=== PATIENT | male | born 1960 | race Caucasian/White ===

== ENCOUNTER 2017-02-05 17:42 | Emergency (ER) | payer BC ==
[~2017-02-05] VITALS: Ht 185.4 cm; Wt 108.9 kg
--- NOTE | 2017-02-05 17:54 | EKG ---
[address] [address] Test Date: 2017-02-05 Test Time: 17:49:16 Pat Name: JINNY FLORES Department: Room: Gender: M Distribution [employer]: : 1960 Requested By: YUMI HURTADO Order Number: [id number] Reading MD: Ortiz Kc Measurements Intervals [place] Rate: 98 P: 50 SC: 150 QRS: 14 QRSD: 88 T: 28 QT: 322 QTc: 413 Interpretive Statements SINUS RHYTHM Electronically Signed On 02-13-2017 8:48:10 CDT by Ortiz Kc
[2017-02-05 18:09] LABS: BASO # 0.1 x10^3/uL (0.0-0.2); BASO % 1 % (0-3); EOS # 0.3 x10^3/uL (0.0-0.7); EOS % 3 % (0-3); HEMOGLOBIN 14.6 g/dL (13.0-17.5); LYMPH # 1.5 x10^3/uL (1.0-4.8); LYMPH % 17 % (24-48); MEAN CORPUSCULAR HEMOGLOBIN 32 pg (25-35); MEAN CORPUSCULAR HGB CONC 34 g/dL (31-37); MEAN CORPUSCULAR VOLUME 95 fL (79-100); MONO # 0.7 x10^3/uL (0.0-1.1); MONO % 8 % (0-9); NEUT # 6.2 x10^3uL (1.8-7.7); NEUT % 71 % (31-73); PLATELET COUNT 170 x10^3/uL (140-400); RED BLOOD COUNT 4.54 x10^6/uL (4.30-5.70); RED CELL DISTRIBUTION WIDTH 13.8 % (11.5-14.5); WHITE BLOOD COUNT 8.7 x10^3/uL (4.0-11.0)
--- NOTE | 2017-02-05 18:12 | PHYS DOC ---
Past History Past Medical History: Hypertension Past Surgical History: Lumbar Laminectomy Smoking: Cigarettes, Greater than 1 pack/day Drug Use: None Adult General Chief Complaint Chief Complaint: CHEST PAIN HPI HPI He is a pleasant 56-year-old male with history of hypertension hyperglycemia soft reflux disease and a family history is significant for CAD vitamin D deficiency presents with chest pain. This chest pain has been ongoing for the last 3 weeks intermittently lasting anywhere from 10 minutes to an hour and a half. Says can occur while at rest also while with exertion. The pain does not radiate to the neck back shoulder or arm. He admits that the pain is better with rest it does make him very short of breath as well as lightheaded dizzy and nauseous. His last significant episode was today. Admittedly they're getting more severe and increasing in frequency. He was seen by his primary care doctor 3 days ago for similar presentation EKG was done at that time and was deemed unremarkable. It demonstrated right bundle branch block with T-wave inversions in V1 and V2. No troponin was completed. Patient admits this had no cough no URI symptoms no travel outside the country no right lower leg swelling or pain he denies any trauma Review of Systems Review of Systems Constitutional: Generalized weakness and dizziness with symptoms. Eyes: Denies change in visual acuity, redness, or eye pain [] HENT: Denies nasal congestion or sore throat [] Respiratory: Denies cough has shortness of breath with exertion Cardiovascular: No additional information not addressed in HPI [] GI: Denies abdominal pain, he does have some nausea and retching with symptoms no diarrhea no constipation : Denies dysuria or hematuria [] Musculoskeletal: Denies back pain or joint pain [] Integument: Denies rash or skin lesions does have some diaphoresis with symptoms. Neurologic: Denies headache, focal weakness or sensory changes she does get dizzy with symptoms Endocrine: Denies polyuria or polydipsia [] Family History Family History Negative family history and the brother and mother for significant heart disease. Allergies Allergies Allergies Coded Allergies Type Severity Reaction Last Updated Verified amoxicillin Allergy Severe 02/05/17 Yes clavulanic acid Allergy Severe 02/05/17 Yes loratadine Allergy Intermediate 02/05/17 Yes Physical Exam Physical Exam Constitutional: Well developed, well nourished, no acute distress, non-toxic appearance. [] HENT: Normocephalic, atraumatic, bilateral external ears normal, oropharynx moist, no oral exudates, nose normal. [] Eyes: PERRLA, EOMI, conjunctiva normal, no discharge. [] Neck: Normal range of motion, no tenderness, supple, no stridor. No JVD no bruits noted Cardiovascular:Heart rate regular rhythm, no murmur [] Lungs & Thorax: Bilateral breath sounds clear to auscultation no wheezes rhonchi rales or crackles Abdomen: Bowel sounds normal, soft, no tenderness, no masses, no pulsatile masses. [] Skin: Warm, dry, no erythema, no rash. Nondiaphoretic +2 Refill +2 peripheral pulses Back: No tenderness, no CVA tenderness. [] Extremities: No tenderness, no cyanosis, no clubbing, ROM intact, no edema. [] Neurologic: Alert and oriented X 3, normal motor function, normal sensory function, no focal deficits noted. [] Psychologic: Affect normal, judgement normal, mood normal. [] Current Patient Data Vital Signs Vital Sign - Last 24 Hours 02/05/17 02/05/17 02/05/17 02/05/17 17:43 18:19 18:22 18:28 Temp 98.8 Pulse 83 80 79 Resp 16 16 20 B/P (MAP) 162/97 162/97 (118) Pulse Ox 96 98 97 O2 Delivery Room Air Nasal Cannula O2 Flow Rate 2.0 Lab Results Nursery Laboratory Tests 02/05/17 17:45: White Blood Count 8.7, Red Blood Count 4.54, Hemoglobin 14.6, Hematocrit 43.0, Mean Corpuscular Volume 95, Mean Corpuscular Hemoglobin 32, Mean Corpuscular Hemoglobin Concent 34, Red Cell Distribution Width 13.8, Platelet Count 170, Neutrophils (%) (Auto) 71, Lymphocytes (%) (Auto) 17, Monocytes (%) (Auto) 8, Eosinophils (%) (Auto) 3, Basophils (%) (Auto) 1, Neutrophils # (Auto) 6.2, Lymphocytes # (Auto) 1.5, Monocytes # (Auto) 0.7, Eosinophils # (Auto) 0.3, Basophils # (Auto) 0.1, Sodium Level 142, Potassium Level 4.2, Chloride Level 106, Carbon Dioxide Level 30, Anion Gap 6, Blood Urea Nitrogen 14, Creatinine 1.2, Estimated GFR (Cockcroft-Gault) 62.9, Glucose Level 130, Calcium Level 8.7 Laboratory Tests Test 02/05/17 17:45 White Blood Count 8.7 x10^3/uL (4.0-11.0) Red Blood Count 4.54 x10^6/uL (4.30-5.70) Hemoglobin 14.6 g/dL (13.0-17.5) Hematocrit 43.0 % (39.0-53.0) Mean Corpuscular Volume 95 fL (79-100) Mean Corpuscular Hemoglobin 32 pg (25-35) Mean Corpuscular Hemoglobin Concent 34 g/dL (31-37) Red Cell Distribution Width 13.8 % (11.5-14.5) Platelet Count 170 x10^3/uL (140-400) Neutrophils (%) (Auto) 71 % (31-73) Lymphocytes (%) (Auto) 17 % (24-48) L Monocytes (%) (Auto) 8 % (0-9) Eosinophils (%) (Auto) 3 % (0-3) Basophils (%) (Auto) 1 % (0-3) Neutrophils # (Auto) 6.2 x10^3uL (1.8-7.7) Lymphocytes # (Auto) 1.5 x10^3/uL (1.0-4.8) Monocytes # (Auto) 0.7 x10^3/uL (0.0-1.1) Eosinophils # (Auto) 0.3 x10^3/uL (0.0-0.7) Basophils # (Auto) 0.1 x10^3/uL (0.0-0.2) EKG EKG EKG timed 5:49 PM 5 2006 temperature it's normal sinus rhythm with a heart rate of 98 patient demonstrates normal QRS with normal CT interval does demonstrate RR prime in V1 possibly right bundle wedge block with inverted T waves in V1 which is mildly changed from prior EKG from 02/02/2017 with a T- wave inversion in V1 and V2. Patient has a similar elevation at this time as is an abnormal EKG read by me Dr. Doll [] Radiology/Procedures Radiology/Procedures Patient's chest x-ray time 0586 02/05/2017 demonstrates no focal infiltrate no pleural effusion no pneumothorax no pneumomediastinum no subcutaneous air trachea is midline correctionist within normal limits there is some increased peribronchial Cupping. [] Course & Med Decision Making Course & Med Decision Making Pertinent Labs and Imaging studies reviewed. (See chart for details) reviewed nursing notes and vital signs upon arrival noted hypertension Patient is a very significant nice 56-year-old male with history of hypertension smoking family history with chest pain that is intermittent that can occur at rest as well as with exertion I'm concerned that this patient has unstable angina. Differential diagnosis includes but not limited to unstable angina acute coronary syndrome, pneumonia, pneumothorax, cardiac R, pericarditis , pneumomediastinum, esophageal reflux, muscular chest pain, cancer, Discussed with Dr. Shah cardiology on-call return phone call at [phone] he denied discussed patient's symptoms decision to transfer patient placing on heparin and holding nothing by mouth after midnight with the anticipation of going to the catheter lab in the morning. The decision was not made to hold him here at [facility] concerning the fact [employer] is not available at this hospital Dr. Ventura[hospital. Call approximately [phone] return phone call for the ER was willing to accept patient transfer given chest pain was stopped discussed plan with true medicine with cardiology's input agreed with disposition and transfer. Discussed differential diagnosis plan with family at bedside and final treatment was aspirin on arrival and he took nitroglycerin paste on the chest wall morphine oxygen fluids and heparin. Patient will be going to the [facility] tomorrow morning. Impression unstable angina possible non-ST segment elevation [place] Disposition transfer emergently to [facility] to CVICU] patient was in stable but guarded condition. Reasons for transfer with family risks and benefits which was outlined on an transfer form discussed with family. Family and agreement with transfer arrangements are questions at this time patient has been stabilized to the best of our ability here at this facility before transfer. Dragon Disclaimer Dragon Disclaimer This chart was dictated in whole or in part using Voice Recognition software in a busy, high-work load, and often noisy Emergency Department environment. It may contain unintended and wholly unrecognized errors or omissions. Departure Departure: Impression: Primary Impression: Unstable angina Additional Impression: Elevated troponin Disposition: 05 XFER OTHER Admitting Physician: Other Condition: GUARDED Referrals: DEBORAH SILVER (PCP) Problem Qualifiers MARGARET DOLL MD February 05, 2017 18:12
[2017-02-05 18:13] LABS: CALCIUM 8.7 mg/dL (8.5-10.1); CREATININE 1.2 mg/dL (0.7-1.3); GFR 62.9; POTASSIUM 4.2 mmol/L (3.5-5.1)
[2017-02-05] MEDS ORDERED: ASPIRIN 81 MG TAB.CHEW ONE (18:13)
[2017-02-05] MEDS ORDERED: NITROGLYCERIN OINT 1 GM PACKET. ONE (18:13)
[2017-02-05] MEDS ORDERED: IV NORMAL SALINE 1,000ML 1,000 ML IV SCH (18:16)
[2017-02-05] MEDS ORDERED: HEPARIN for IV BOLUS 10,000 UNIT/10 ML VIAL. IV ONE (18:30)
[2017-02-05] MEDS ORDERED: ASPIRIN 81 MG TAB.CHEW PO ONE (18:30)
[2017-02-05] MEDS ORDERED: NITROGLYCERIN OINT 1 GM PACKET. TP ONE (18:30)
[2017-02-05] MEDS ORDERED: 0.9 % SODIUM CHLORIDE 10 ML DISP.SYRIN. IV PRN (18:30)
[2017-02-05] MEDS ORDERED: MORPHINE SULFATE 2 MG/ML DISP.SYRIN. IV ONE (18:30)
[2017-02-05] MEDS ORDERED: ONDANSETRON PF 4 MG/2 ML VIAL. IV ONE (18:30)
[2017-02-05] MEDS ORDERED: HEPARIN 25,000UTS/500ML PREMIX 500 ML IV ONE (18:30)
[2017-02-05 18:41] LABS: DIRECT BILIRUBIN 0.1 mg/dL (0.0-0.2); TOTAL BILIRUBIN 0.3 mg/dL (0.2-1.0); TOTAL PROTEIN 7.2 g/dL (6.4-8.2)
[2017-02-05 18:49] LABS: MAGNESIUM 2.2 mg/dL (1.8-2.4)
[2017-02-05 19:18] VITALS: BP 131/84
--- NOTE | 2017-02-06 07:11 | RAD ---
Indication: Chest pain. Time of exam 1755 hours. No prior studies are available for comparison. The heart size is stable. The lungs are clear. The bony vascularity is normal. No infiltrate, effusion or pneumothorax is seen. A sclerotic focus involving the left fifth posterior rib is noted, indeterminate. Impression: No acute cardiopulmonary process is detected.
[2017-02-06 16:03] LABS: THYROID STIM HORMONE (TSH) 1.225 uIU/mL (0.358-3.740)
== END 2017-02-05 19:50 | disposition short-term general hospital (02) ==
LOC: ER 17:42
DX: I20.9 Angina pectoris, unspecified (principal); I10 Essential (primary) hypertension; F17.210 Nicotine dependence, cigarettes, uncomplicated; Z88.1 Allergy status to other antibiotic agents; Z88.8 Allergy status to other drugs, medicaments and biological substances
CPT/HCPCS: 36415; 71010; 80048; 80061; 80076; 82553; 83690; 83735; 83880; 84443; 84484; 85027; 93005; 96365; 96375; 99285; J1644; J2270; J2405; J7030